=== PATIENT | female | born 1985 | race Caucasian/White ===

== ENCOUNTER 2019-09-15 12:46 | Outpatient (CLI) | payer SELFPAY ==
--- NOTE | 2019-09-15 13:10 | MR_ITS ---
WS: [id number] MRI OF THE PELVIS WITHOUT AND WITH GADOLINIUM ENHANCEMENT INDICATION: Enlarged left ovary TECHNIQUE: MRI of the pelvis without and with gadolinium enhancement FINDINGS: Comparison CT abdomen pelvis Prior hysterectomy. T2 hyperintense peripheral enhancing left ovarian lesion measuring 1.3 x 1.5 cm likely representing physiologic ovarian cyst or corpus luteum cyst. No visualized internal septations or debris. Internal contents could be further evaluated with ultrasound. A few small surrounding bienvenido ghter cysts.This appears similar in location and appearance to the prior CT August 20, 2019. Normal right ovary. Bone marrow signal in the lower lumbar spine and sacrum is normal. Bone marrow signal in the proximal femurs and hips are normal in appearance. No pelvic lymphadenopathy. Urine distended bladder. Normal visualized sigmoid colon and rectum. MR/MR pelvis wo/w con [id number] IMPRESSION: 1. Peripheral enhancing left ovarian T2 hyperintense lesion likely a physiolog ic cyst or corpus luteum cyst measuring approximately 1.3 x 1.5 CM. A few surro unding incidental daughter cysts. Cystic contents could be further evaluated wi ultrasound. 2. Right ovary is normal in appearance with normal physiologic follicles. 3. Prior hysterectomy. 4. No pelvic lymphadenopathy. 5. No other significant findings.
== END 2019-09-15 12:47 | disposition home or self-care (01) ==
LOC: RADSHAW 12:54
DX: N83.8 Other noninflammatory disorders of ovary, fallopian tube and broad ligament (principal); Z90.710 Acquired absence of both cervix and uterus
CPT/HCPCS: 72197; A9579

== ENCOUNTER 2020-10-10 15:20 | Outpatient (CLI) | payer SELFPAY ==
--- NOTE | 2020-10-10 15:29 | MR_ITS ---
WS: [id number] MRI LUMBAR SPINE NONCONTRAST TECHNIQUE: Sagittal T1, T2 and STIR imaging. Axial T1 and T2 imaging. CLINICAL INFORMATION: RADICULOPATHY, LUMBAR REGION COMPARISON: None. FINDINGS: Mild lumbar curve. No acute compression. No high-grade central canal stenosis. L1-L2: Normal. L2-L3: Minimal annular bulging. Mild facet arthropathy. Spinal canal and foramen are patent. L3-L4: Tiny right foraminal protrusion with mild right and no significant left foraminal narrowing. M ild facet arthropathy. Spinal canal is patent. L4-L5: Mild annular bulging. Slight effacement of the ventral thecal sac. Slight narrowing of the lef t subarticular recess. Left foraminal protrusion with mild left and no significant right foraminal na rrowing. Small annular fissure. Mild to moderate left foraminal narrowing. L5-S1: Mild annular bulging. Tiny shallow central protrusion. Tiny annular fissure. Mild right and no significant left foraminal narrowing. Mild facet arthropathy. Right renal cyst measuring 13 mm. Partially visualized right ovarian cyst measuring 16 mm. Visualized pelvic bony structures: Normal. Paravertebral soft tissues: Normal. MR/MR lumbar spine wo con* [id number] IMPRESSION: 1. Mild lumbar curve. No acute compression. No high-grade central canal stenos is. 2. Small right foraminal protrusion with contact of the exiting right L3 nerve root. Recommend correlation for right L3 nerve root symptoms. 3. Left foraminal protrusion L4-5 with an annular fissure and slight impingeme nt on the exiting left L4 nerve root with mild to moderate left foraminal narro wing. Correlation for left L4 nerve root symptoms. 4. Tiny shallow central protrusion L5-S1 without significant nerve root imping ement. 5. Mild facet arthropathy L3-L5. 6. Mild right bony foraminal narrowing L5-S1.
--- NOTE | 2020-10-10 15:30 | MR_ITS ---
WS: [id number] MRI RIGHT KNEE NONCONTRAST TECHNIQUE: Axial PD, coronal PD fat sat, coronal PD, sagittal PD, and sagittal PD fat-sat images obta ined. CLINICAL INFORMATION: PAIN IN RIGHT KNEE COMPARISON: None. FINDINGS: Distal quadriceps and patella tendons are intact. Hypertrophic patella. Normal ACL and PCL. Subchondr al cystic change with lobulated ganglion cysts or synovial cysts along the intercondylar notch at the anterior tibia. Clustered cysts measure 2.5 x 1.6 CM. Normal medial and lateral meniscus. No acute a ppearing meniscal tears. Distal quadriceps and patella tendons are intact. Moderate chondromalacia patella advanced for patient this age. Normal medial and lateral patellar ret inaculum. Normal MCL and LCL. Normal popliteal fossa. Mild chondromalacia involving the medial and la teral joint compartments. MR/MR knee RT wo con* [id number] IMPRESSION: 1. Anterior and posterior cruciate ligaments are intact. 2. No acute appearing meniscal tears. 3. Lobulated cluster of ganglion cysts or synovial cysts along the anterior ti esthela intercondylar notch measuring 1.6 x 2.5 CM. 4. Moderate chondromalacia patella advanced for patient this age. No subchondr al edema. 5. Normal medial and lateral collateral ligaments.
== END 2020-10-10 15:21 | disposition home or self-care (01) ==
LOC: RADWPI 15:26
PROVIDERS: PCP Nurse Practitioner Family; Visit Provider Nurse Practitioner Family
DX: M54.16 Radiculopathy, lumbar region (principal); M22.41 Chondromalacia patellae, right knee; M47.816 Spondylosis without myelopathy or radiculopathy, lumbar region; M51.27 Other intervertebral disc displacement, lumbosacral region
CPT/HCPCS: 72148; 73721

== ENCOUNTER → 2020-11-09 08:20 | Outpatient (BNVA) | payer SELFPAY | PROVIDERS: PCP Nurse Practitioner Family; Referring Provider Nurse Practitioner Family; Visit Provider Internal Medicine | DX: E16.2 Hypoglycemia, unspecified (principal); R50.9 Fever, unspecified; R59.9 Enlarged lymph nodes, unspecified; R61 Generalized hyperhidrosis; R63.4 Abnormal weight loss | CPT/HCPCS: 99204 ==

== ENCOUNTER 2020-11-28 10:29 | Outpatient (CLI) | payer SELFPAY ==
--- NOTE | 2020-11-28 10:45 | US_ITS ---
WS: [id number] THYROID ULTRASOUND History: Evaluate lymph nodes for enlargement.. Technique: Ultrasound examination of the thyroid and adjacent soft tissues is performed. FINDINGS: Right lobe: 5.0 cm x 1.4 cm x 1.6 cm. Volume: 5.6 cm3. Mildly coarsened echotexture within the gland. Mildly heterogeneous pattern. No nodules. There are sm all cervical chain lymph nodes. These lymph nodes are less than a centimeter with a normal fatty hilu m. Left lobe: 3.7 cm x 1.4 cm x 0.9 cm. Volume: 2.4 cm3. Small heterogeneous gland. No nodule or mass. Small cervical chain lymph nodes. The largest measures 1.7 cm. Isthmus: 0.3 cm. US/US thyroid [id number] Impression: 1. Mildly coarsened echotexture throughout the thyroid with no suspicious mass . 2. Bilateral cervical chain lymph nodes. LEFT is slightly greater than the RIGH T but normal fatty dallin with no increased vascularity.
== END 2020-11-28 10:30 | disposition home or self-care (01) ==
LOC: RAD 10:34
PROVIDERS: PCP Nurse Practitioner Family; Visit Provider Internal Medicine
DX: R59.9 Enlarged lymph nodes, unspecified (principal)
CPT/HCPCS: 76536

== ENCOUNTER 2021-01-18 11:43 | Outpatient (CLI) | payer SELFPAY ==
--- NOTE | 2021-01-18 11:57 | XR_ITS ---
WS: [id number] Chest PA view, 01/18/2021 Clinical Data: FUO Comparison: Portable chest, 02/02/2012. Findings: No nodules, masses or effusions are seen. The heart is normal. The pulmonary vascularity is not increased. No pneumonia or pneumothorax is seen. XR/XR chest 1V [id number] Impression: Negative chest.
[2021-01-18 12:48] LABS: Basophils % 0.4 %; Eosinophils # 0.2 10^3/uL (0.0-0.8); Eosinophils % 1.5 %; Hematocrit 47.8 % (37.0-47.0); Hemoglobin 16.1 g/dL (11.5-15.3); Lymphocytes # 3.2 10^3/uL (0.8-4.8); Lymphocytes % 32.2 %; Mean Corpuscular HGB Conc 33.7 g/dL (30.0-36.0); Mean Corpuscular Hemoglobin 32.5 pg (28.0-34.0); Mean Corpuscular Volume 96.6 fL (81-99); Mean Platelet Volume 10.4 fL (7.4-10.4); Monocytes # 0.5 10^3/uL (0.2-0.9); Monocytes % 5.4 %; Neutrophils # 6.06 10^3/uL (1.8-7.7); Neutrophils % 60.2 %; Nucleated Red Blood Cells % 0 %; Platelet Count 268 10^3/cmm (130-400); Red Blood Count 4.95 10^6/uL (4.1-5.3); Red Cell Distribution Width 12.6 % (12.1-15.1); White Blood Count 10.1 10^3/uL (4.0-10.0)
[2021-01-18 13:09] LABS: Lactate (Lactic Acid level) 0.9 mmol/L (0.5-2.2)
[2021-01-18 13:12] LABS: Alanine Aminotransferase 17 U/L (0-33); Albumin Level 4.5 g/dL (3.5-5.2); Alkaline Phosphatase 50 IU/L (35-105); Anion Gap 13.6 (5-19); Aspartate Amino Transferase 17 U/L (0-32); Blood Urea Nitrogen 8 mg/dL (6-20); C Reactive Protein 0.8 mg/L (0.0-4.9); Calcium 8.9 mg/dL (8.5-10.5); Carbon Dioxide 26 mmol/L (22-29); Chloride 103 mmol/L (98-107); Globulin 2.7 g/dL (1.3-4.6); Glomerular Filtration Rate 96.4 mL/min (90-130); Glucose 90 mg/dL (65-115); Osmolality Calculated 286 mOsm/kg (285-295); Potassium 3.6 mmol/L (3.5-5.1); Sodium 139 mmol/L (136-145); Total Bilirubin 1.1 mg/dL (0.15-1.2); Total Protein 7.2 g/dL (6.6-8.7)
[2021-01-18 13:50] LABS: Erythrocyte Sedimentation Rate 12 mm/hr (0-15)
[2021-01-18 14:27] LABS: HIV 1 & 2 Antibody Non-Reactive (Non-Reactiv); HIV 1 & 2 Antigen Non-Reactive (Non-Reactiv)
[2021-01-18 22:48] LABS: Hepatitis A Antibody IgM Non-Reactive (Nonreactive); Hepatitis B Core AB, Total Non-Reactive (Nonreactive); Hepatitis B Surface Antigen Non-Reactive (Nonreactive); Hepatitis C Virus Antibody Non-Reactive (Nonreactive)
[2021-01-18 23:00] LABS: Hepatitis B Surface AB > 1000.0 (11.5-1000)
[2021-01-19 10:28] LABS: COMPLEMENT COMPONENT C3C 121 mg/dL (83-193); COMPLEMENT COMPONENT C4C 25 mg/dL (15-57)
[2021-01-20 12:17] LABS: COMPLEMENT, TOTAL (CH50) >60 U/mL (31-60)
[2021-01-20 15:07] LABS: Quantiferon Mitogen 7.95 IU/mL; Quantiferon Nil 0.02 IU/mL; Quantiferon Plus TB1 0.07 IU/mL; Quantiferon Plus TB2 0.08 IU/mL; Quantiferon TB Gold NEGATIVE (NEGATIVE)
[2021-01-23 15:53] LABS: ANA SCREEN, IFA NEGATIVE (NEGATIVE); CENTROMERE B ANTIBODY <1.0 NEG AI (<1.0 NEG); JO-1 ANTIBODY <1.0 NEG AI (<1.0 NEG); RNP ANTIBODY <1.0 NEG AI (<1.0 NEG); SCL-70 ANTIBODY <1.0 NEG AI (<1.0 NEG); SJOGREN'S ANTIBODY (SS-A) <1.0 NEG AI (<1.0 NEG); SM ANTIBODY <1.0 NEG AI (<1.0 NEG); SS-B <1.0 NEG AI (<1.0 NEG)
[2021-01-24 17:14] LABS: THYROID PEROXIDASE ANTIBODIES 201 IU/mL (<9)
[2021-01-26 01:32] LABS: DNA AB (DS) CRITHIDIA,IFA NEGATIVE (NEGATIVE)
== END 2021-01-18 11:44 | disposition home or self-care (01) ==
LOC: RAD 11:50
PROVIDERS: PCP Nurse Practitioner Family; Visit Provider Student in an Organized Health Care Education/Training Program
DX: R50.9 Fever, unspecified (principal)
CPT/HCPCS: 36415; 71045; 80053; 83605; 85025; 85651; 86140; 86160; 86162; 86235; 86255; 86376; 86480; 86622; 86705; 86706; 86709; 86803; 87040; 87340; 87806

== ENCOUNTER 2021-04-11 08:12 | Outpatient (CLI) | payer SELFPAY ==
[2021-04-11 09:41] LABS: Cortisol Random 8.13 ug/dL (2.47-19.5); Free T4 Free Thyroxine 1.09 ng/dL (0.82-1.77)
== END 2021-04-11 08:13 | disposition home or self-care (01) ==
PROVIDERS: PCP Nurse Practitioner Family; Visit Provider Internal Medicine
DX: R61 Generalized hyperhidrosis (principal); E16.2 Hypoglycemia, unspecified; R63.4 Abnormal weight loss
CPT/HCPCS: 36415; 82533; 84439; 99214

== ENCOUNTER 2021-05-09 10:59 | Outpatient (CLI) | payer SELFPAY ==
[2021-05-09 12:05] LABS: Basophils # 0.1 10^3/uL (0.0-0.1); Basophils % 0.5 %; Eosinophils # 0.3 10^3/uL (0.0-0.8); Eosinophils % 2.6 %; Hematocrit 44.7 % (37.0-47.0); Lymphocytes # 3.1 10^3/uL (0.8-4.8); Lymphocytes % 32.5 %; Mean Corpuscular HGB Conc 33.6 g/dL (30.0-36.0); Mean Corpuscular Hemoglobin 32.5 pg (28.0-34.0); Mean Corpuscular Volume 96.8 fl (81-99); Mean Platelet Volume 11.1 fL (7.4-10.4); Monocytes # 0.5 10^3/uL (0.2-0.9); Monocytes % 4.8 %; Neutrophils # 5.62 10^3/uL (1.8-7.7); Neutrophils % 59.3 %; Nucleated Red Blood Cells % 0 %; Platelet Count 246 10^3/cmm (130-400); Red Blood Count 4.62 10^6/uL (4.1-5.3); Red Cell Distribution Width 12.5 % (12.1-15.1); White Blood Count 9.5 10^3/uL (4.0-10.0)
--- NOTE | 2021-05-09 17:23 | ONC CON_ITS ---
Dr. Browning New Patient Note Patient: Mey Brody Unit #: [id number]: 1985 Dicatated By: Maritza Browning M.D.Date of Visit: May 09, 2021 Onc MED New Patient/Consult Referring Physician: Dr. Miguel Angel Olivia M.D. History of Present Illness: Ms. Opal Brody, is a 36-year-old female with a history of heavy smoking, pack and half a day and smoking marijuana daily for poor appetite and anxiety, bipolar disorder, chronic pain, fibromyalgia, PTSD started spiking low-grade fever and excessive sweating over. Of 1 year as per patient she has seen infectious disease and underwent extensive work-up for fever of unknown origin but it remained inconclusive, she has seen endocrinology for thyroid problem and now she was referred to oncology clinic with concern about possibility of lymphoma causing recurrent fever and cervical lymphadenopathy. Patient denies any drenching night sweats, denies any significant peripheral lymphadenopathy except off and on lymph node in the right upper neck and right preauricular area, and off-and-on low-grade fever mostly around 99 Fahrenheit, denies any dysuria denies any sore throat but sometimes postnasal drip, denies any skin infection, denies any vaginal discharge, denies any cough with yellowish phlegm but off-and-on dry cough, patient is also complaining of generalized weakness and fatigue and not getting enough sleep at night and he uses 4 pillows. Patient denies any other recreational drugs except marijuana. And drinks alcohol occasionally., Past Medical History: Ms. Brody's medical history consists of adjustment disorder, anxiety, bipolar disorder, borderline personality disorder, carpal tunnel syndrome, chronic pain, depression, fibromyalgia, post traumatic stress disorder, rectocele, and scoliosis. Past Surgical History: Ms. Brody's surgical/procedural history consists of covid vaccine #1 moderna in 2020, bladder repair in 2009, hysterectomy in 2009, and RECTOCELE Repair in 2009. Medications: Cyclobenzaprine HCl 1 Tablet (of 10 mg) Oral t.i.d. PRN Allergies: Adhesive Tape, diazePAM, Meperidine HCl, Methocarbamol, traMADol HCl, and Vinyl Ether. Social History: Ms. Brody is . She is a daily smoker who has smoked 1.0 pack/day for 20 years. She has no history of drinking. She has indicated exposure to the following products: cigarettes. Family History: Ms. Brody's mother is alive. Ms. Brody's father is alive. Ms. Brody has 1 brother who is alive. She has 3 sisters: 3 alive. Review Of Symptoms: Review of Systems is not available for this patient. Vital Signs: Performed on May 09, 2021 16:44: 8, 3, 34.67 (HIGH), 2.16 sq.m, 68 in, 98 %, 91 /min, 18 /min, 123/77 mm(hg), 98.2 F (LOW), and 228 lbs (HIGH). Performance Status: 0 - Fully active, able to carry on all predisease activities without restrictions. (ECOG) Physical Examination: ENMT - No mouth sores, no thrush, no jaundice about centimeter size lymph node palpable in the right upper neck and right preauricular area, no overlying skin changes,, Shotty lymph nodes palpable along right sternocleidomastoid muscle border No axillary lymphadenopathy, Respiratory - Lungs are clear to auscultation, Cardiovascular - Regular rate and rhythm of heart, Abdomen - Soft, bowel sounds present, Extremities - No visible edema or rash. Lab/Imaging: Most recent lab results are not available for this patient. Impression: Off and on low-grade fever T-max 99, mild right upper cervical lymphadenopathy, pathology unclear could be due to chronic subclinical infection like chronic sinusitis or chronic bronchitis or chronic smoking, maybe marijuana related, could be lymphoproliferative disorder Chronic smoking Marijuana smoking Adjustment disorder/bipolar disorder Allergies PTSD Questionable hypothyroidism, not being followed by endocrinology Plan: Discussed with patient regarding her labs white blood count 9.5 hemoglobin 15-44.7 platelets 246,000 with a normal differential Clinically, patient is doing well with no acute signs symptom except mild discomfort in her right preauricular area and right upper neck, about 1 cm palpable lymph node, no overlying skin changes or tenderness., Small shotty lymph node palpable along right sternocleidomastoid muscle border. Etiology remains unclear could be reactive/inflammatory due to postnasal discharge or mild pharyngitis or chronic bronchitis or airways/sinus irritation due to chronic smoking. Other possibility could be lymphoproliferative disorder but less likely, at this point will proceed with CT scan of neck, chest, abdomen and pelvis and also consider CT scan of sinuses and patient was advised to quit smoking and was offered any assistance she may need she was also advised to hold marijuana till her next visit and she was also recommended to do nasal irrigation, steam inhalation and gargles., She will return to clinic after above-mentioned work-up including CT scan of neck chest abdomen pelvis as well as CT scan of sinuses, will review that and make further recommendations. As per medical record, patient has questionable history of cervical cancer and underwent hysterectomy in [facility], will obtain records and review. Signed By: Maritza Browning M.D. <<Signature on File>>
== END 2021-05-09 11:00 | disposition home or self-care (01) ==
LOC: ONCMED 11:06
PROVIDERS: PCP Nurse Practitioner Family; Visit Provider Internal Medicine Hematology & Oncology
DX: R50.9 Fever, unspecified (principal)
CPT/HCPCS: 36415; 85025; 99204

== ENCOUNTER 2021-05-16 11:12 | Outpatient (CLI) | payer SELFPAY ==
--- NOTE | 2021-05-16 11:18 | CT_ITS ---
WS: [id number] CT NECK WITH CONTRAST HISTORY: LYMPHADENOPATHY TECHNIQUE: Contiguous 5 mm axial images are performed through the neck with intravenous contrast. Sag ittal and coronal reformats are also submitted. All CT scans at [facility] use at least one o f these dose optimization techniques: automated exposure control; mA and/or kV adjustment per patient size (includes targeted exams where dose is matched to clinical indication); or iterative reconstruc tion. CONTRAST: CONTRAST: Omnipaque 300; 95 mL IV. DLP: 895.09 mGycm COMPARISON: None available. There is soft tissue thickening with mild enhancement involving the oropharynx and nasopharynx. There is mildly prominent adenoid soft tissue and low attenuation centrally in the posterior nasopharynx a nd oropharynx. These findings are symmetric bilaterally. Parapharyngeal fat is normal. There are bilateral cervical chain lymph nodes which are all less than a centimeter. The largest lymp h nodes measure up to 6 mm in diameter. Thyroid gland and salivary glands are normally enhancing with no masses. No osseous abnormalities. Visualized paranasal sinuses and mastoid air cells are normal. Lung apices are clear. CT/CT neck w con* [id number] IMPRESSION: 1. Prominent soft tissue with central low attenuation and peripheral enhanceme nt involving the nasopharynx and oropharynx. Bilateral, symmetrical process. Fa vor this is probably postinflammatory or infectious. 2. Small bilateral cervical chain lymph nodes with no enlargement.
[2021-05-16] MEDS: iohexol 300 mg/mL 100 mL Btl IV (11:35)
== END 2021-05-16 11:13 | disposition home or self-care (01) ==
PROVIDERS: PCP Nurse Practitioner Family; Visit Provider Internal Medicine Hematology & Oncology
DX: R59.9 Enlarged lymph nodes, unspecified (principal)
CPT/HCPCS: 70491; Q9967

== ENCOUNTER 2021-05-18 09:48 | Outpatient (CLI) | payer SELFPAY ==
--- NOTE | 2021-05-18 10:12 | CT_ITS ---
WS: [id number] CT CHEST, ABDOMEN AND PELVIS WITH CONTRAST HISTORY: LYMPHADENOPATHY TECHNIQUE: Contiguous 5 mm axial imaging performed through the chest, abdomen and pelvis with IV cont rast, oral contrast has been provided. Coronal and sagittal reformats chest. Coronal and sagittal ref ormats through the abdomen and pelvis. All CT scans at [facility] use at least one of these d ose optimization techniques: automated exposure control; mA and/or kV adjustment per patient size (in cludes targeted exams where dose is matched to clinical indication); or iterative reconstruction. CONTRAST: Omnipaque 300; 95 mL IV. DLP: 2061.9 mGycm COMPARISON: 08/20/2019 and 05/16/[address]: Very mild interstitial thickening and haziness throughout both lungs. In part this may be d ue to poor inspiration. Small amount of pneumonitis or end airways disease is not excluded. No pneumo jairo. No pericardial or pleural effusions. Normal size aorta and pulmonary artery. No mediastinal, hil ar or axillary adenopathy. Very small amount of residual soft tissue in the anterior mediastinal fat is probably thymic tissue. There is no displacement of the soft tissues. Abdomen CT: Liver, spleen, gallbladder, pancreas, adrenal glands and the aorta are unremarkable. Ther e is a cyst measuring 1.5 cm in the mid RIGHT kidney. No adenopathy or ascites. No free air. No GI tract obstruction. The appendix is normal. Pelvic CT: No free fluid or adenopathy within the pelvis. Patient has undergone a prior hysterectomy. Both ovaries are identified. Very similar in appearance to the prior examination. No osseous destructive lesions. CT/CT chest abd pel w con* IMPRESSION: 1. No adenopathy within the chest, abdomen or pelvis. 2. Status post hysterectomy. Both ovaries are still identified and similar to the study from 2019. 3. Normal appendix. 4. No splenomegaly. 5. No pulmonary mass or nodule. 6. Mild peripheral interstitial thickening throughout both lungs. May be due t o poor inspiration or some very minimal end airways disease which can be seen w ith smoking.
[2021-05-18] MEDS: iohexol 300 mg/mL 50 mL Btl PO (10:16)
[2021-05-18] MEDS: iohexol 300 mg/mL 100 mL Btl IV (11:34)
== END 2021-05-18 09:49 | disposition home or self-care (01) ==
LOC: RADWPI 09:50
PROVIDERS: PCP Nurse Practitioner Family; Visit Provider Internal Medicine Hematology & Oncology
DX: R59.9 Enlarged lymph nodes, unspecified (principal); Z90.710 Acquired absence of both cervix and uterus
CPT/HCPCS: 71260; 74177; Q9967

== ENCOUNTER 2021-05-23 14:28 | Outpatient (CLI) | payer SELFPAY ==
--- NOTE | 2021-05-23 16:40 | ONC FU_ITS ---
Dr. Browning follow up note Patient: Mey Brody Unit #: [id number]: 1985 Dicatated By: Maritza Browning M.D.Date of Visit:May 23, 2021 Onc Med Follow-up/Prog Note History of Present Illness: Ms. Opal Brody, is a 36-year-old female with a history of heavy smoking, pack and half a day and smoking marijuana daily for poor appetite and anxiety, bipolar disorder, chronic pain, fibromyalgia, PTSD started spiking low-grade fever and excessive sweating over. Of 1 year as per patient she has seen infectious disease and underwent extensive work-up for fever of unknown origin but it remained inconclusive, she has seen endocrinology for thyroid problem and now she was referred to oncology clinic with concern about possibility of lymphoma causing recurrent fever and cervical lymphadenopathy. Patient denies any drenching night sweats, denies any significant peripheral lymphadenopathy except off and on lymph node in the right upper neck and right preauricular area, and off-and-on low-grade fever mostly around 99 Fahrenheit, denies any dysuria denies any sore throat but sometimes postnasal drip, denies any skin infection, denies any vaginal discharge, denies any cough with yellowish phlegm but off-and-on dry cough, patient is also complaining of generalized weakness and fatigue and not getting enough sleep at night and he uses 4 pillows. Patient denies any other recreational drugs except marijuana. And drinks alcohol occasionally., CT scan of neck done on May 16, 2021 shows prominent soft tissue and central low attenuation with peripheral enhancement involving nasopharynx and oropharynx. Small bilateral cervical chain lymph nodes with no enlargement. The largest lymph node measured up to [address] scan of the chest abdomen pelvis done on May 18, 2021 shows no adenopathy within chest, abdomen or pelvis. Status post hysterectomy, both ovaries are still identified and similar to the study from 2019. No other abnormality seen. Except mild peripheral interstitial thickening throughout both lungs. May be due to poor inspiration or some very minimal and airways disease which can be seen with smoking. Came for follow-up, denies any specific complaint, except off and on low-grade fever, patient still smoke marijuana on regular basis. And denies any chills, denies any sore throat, denies any dysuria, denies any sinus problem, denies any earache, denies any cough denies any abdominal pain or fullness. Denies any night sweats. Medications: Cyclobenzaprine HCl 1 Tablet (of 10 mg) Oral t.i.d. PRN Allergies: Adhesive Tape, diazePAM, Meperidine HCl, Methocarbamol, traMADol HCl, and Vinyl Ether. Review of Systems: Review of Systems is not available for this patient. Vital Signs: Performed on May 23, 2021 16:10 Height - 68.00 in Weight - 221.2 lbs (LOW) BSA - 2.13 sq.m BMI - 33.63 (HIGH) Temperature - 97.8 F (LOW) Pulse - 92 /min Respiration - 18 /min BP - 124/79 mm(hg) O2 Sat - 97 % Pain - 2 Fatigue - 6 Performance Status: 0 - Fully active, able to carry on all predisease activities without restrictions. (ECOG) Physical Examination: ENMT - No mouth sores, no thrush, no jaundice, no cervical lymphadenopathy, Respiratory - Lungs are clear to auscultation, Cardiovascular - Regular rate and rhythm of heart, Abdomen - Soft, bowel sounds present, Extremities - No visible edema. Lab/Imaging: Most recent lab results are not available for this patient. Impression: Off and on low-grade fever T-max 99, mild right upper cervical lymphadenopathy, pathology unclear could be due to chronic subclinical infection like chronic sinusitis or chronic bronchitis or chronic smoking, maybe marijuana related, could be lymphoproliferative disorder CT scan of neck done on May 16, 2021 shows prominent soft tissue and central low attenuation with peripheral enhancement involving nasopharynx and oropharynx. Small bilateral cervical chain lymph nodes with no enlargement. The largest lymph node measured up to [address] scan of the chest abdomen pelvis done on May 18, 2021 shows no adenopathy within chest, abdomen or pelvis. Status post hysterectomy, both ovaries are still identified and similar to the study from 2019. No other abnormality seen. Except mild peripheral interstitial thickening throughout both lungs. May be due to poor inspiration or some very minimal and airways disease which can be seen with smoking. Chronic smoking Marijuana smoking Adjustment disorder/bipolar disorder Allergies PTSD Questionable hypothyroidism, not being followed by endocrinology Plan: Discussed with patient regarding her CT scan of neck chest abdomen pelvis which showed no significant finding except soft tissue thickening with mild enhancement involving oropharynx and nasopharynx etiology unclear could be due to postnasal drip or other pathology, thus we will refer her to ENT for evaluation As far as CT scan of chest abdomen pelvis is concerned, there is no central lymphadenopathy or organomegaly or any other normality seen. No further work-up from oncology hematology point of view, patient was advised to quit marijuana, as her off and on low-grade fever could be due to marijuana as her CBC showed no abnormality and CT scan of neck chest abdomen pelvis showed no significant abnormality except tissue thickening or mild enhancement in the oropharynx and nasopharynx, for which she been referred to ENT for evaluation. We will see her on a as needed basis and patient will follow up with her primary care physician on regular basis. Signed By: Maritza Browning M.D. <<Signature on File>>
== END 2021-05-23 14:29 | disposition home or self-care (01) ==
LOC: ONCMED 14:30
PROVIDERS: PCP Nurse Practitioner Family; Visit Provider Internal Medicine Hematology & Oncology
DX: R59.0 Localized enlarged lymph nodes (principal); F12.90 Cannabis use, unspecified, uncomplicated; F31.9 Bipolar disorder, unspecified; F43.20 Adjustment disorder, unspecified; F43.10 Post-traumatic stress disorder, unspecified
CPT/HCPCS: 99214

== ENCOUNTER → 2021-07-13 09:14 | Outpatient (BNVA) | payer SELFPAY | PROVIDERS: PCP Nurse Practitioner Family; Visit Provider Internal Medicine | DX: E06.3 Autoimmune thyroiditis (principal); E07.9 Disorder of thyroid, unspecified; E16.2 Hypoglycemia, unspecified; R59.9 Enlarged lymph nodes, unspecified | CPT/HCPCS: 99213 ==

== ENCOUNTER 2021-07-13 10:23 | Outpatient (CLI) | payer SELFPAY ==
[2021-07-13 11:16] LABS: Thyroid Stimulating Hormone 2.79 uIU/mL (0.27-4.20)
[2021-07-13 12:17] LABS: Free T4 Free Thyroxine 1.31 ng/dL (0.82-1.77)
== END 2021-07-13 10:24 | disposition home or self-care (01) ==
LOC: LAB 10:27
PROVIDERS: PCP Nurse Practitioner Family; Visit Provider Internal Medicine
DX: E06.3 Autoimmune thyroiditis (principal); Z98.890 Other specified postprocedural states
CPT/HCPCS: 36415; 84439; 84443

== ENCOUNTER 2021-09-13 10:18 | Outpatient (CLI) | payer SELFPAY ==
[2021-09-13 11:06] LABS: Free T4 Free Thyroxine 1.14 ng/dL (0.82-1.77); Thyroid Stimulating Hormone 1.17 uIU/mL (0.27-4.20)
== END 2021-09-13 10:19 | disposition home or self-care (01) ==
LOC: LAB 10:21
PROVIDERS: PCP Nurse Practitioner Family; Visit Provider Internal Medicine
DX: E06.3 Autoimmune thyroiditis (principal); E16.2 Hypoglycemia, unspecified
CPT/HCPCS: 36415; 84439; 84443

== ENCOUNTER → 2023-03-21 10:04 | Outpatient (BNVA) | payer MEDICAID, SELFPAY | PROVIDERS: PCP Registered Nurse; Visit Provider Registered Nurse | DX: R63.4 Abnormal weight loss (principal); G47.00 Insomnia, unspecified; Z63.5 Disruption of family by separation and divorce; E55.9 Vitamin D deficiency, unspecified; E78.5 Hyperlipidemia, unspecified; E53.8 Deficiency of other specified B group vitamins; I10 Essential (primary) hypertension | CPT/HCPCS: 80053; 80061; 81000; 82306; 82607; 83036; 84443; 85025; 86803 ==

== ENCOUNTER 2023-06-05 06:15 | Outpatient (CLI) | payer MEDICAID, SELFPAY ==
--- NOTE | 2023-06-05 06:30 | US_ITS ---
WS: [id number] THYROID ULTRASOUND HISTORY: E06.3 - Autoimmune thyroiditis COMPARISON: 11/28/2020 Right lobe: 1.3 cm x 1.4 cm x 4.7 cm (w x ap x l). Volume: 4.2 cm3. Normal sized thyroid. There is a hypoechoic nodule along the mid anterior gland measuring 4 x 3 x 5 m m. No solid nodules or concerning nodules. Mild increased vascularity persists throughout the the cou rse and gland. Left lobe: 1.4 cm x 0.9 cm x 3.7 cm (w x ap x l). Volume: 2.3 cm3. Tiny nodules throughout the gland. These may be colloid cysts. No solid or suspicious mass. Increased vascularity throughout the gland. Small cervical chain lymph nodes. Isthmus: 0.2 cm. IMPRESSION: 1. Mild increased vascularity throughout the gland and coarse echotexture. This can be seen with Hash imoto's thyroiditis. 2. There are very small nodules within each lobe which are not concerning. No further work-up necessa ry.
== END 2023-06-05 06:16 | disposition home or self-care (01) ==
PROVIDERS: PCP Registered Nurse; Visit Provider Registered Nurse
DX: E06.3 Autoimmune thyroiditis (principal)
CPT/HCPCS: 76536